=== PATIENT | female | born 1990 | race Caucasian/White ===

== ENCOUNTER 2016-10-23 18:31 | Outpatient (CLI) | payer MEDICAID ==
[2016-10-23 19:53] LABS: AMORPHOUS SEDIMENT,URINE TRACE /HPF; APPEARANCE,URINE SLIGHTLY-CLOUDY; BILIRUBIN,URINE NEGATIVE (NEGATIVE); GLUCOSE, URINE NEGATIVE (NEGATIVE); KETONES,URINE NEGATIVE (NEGATIVE); LEUKOCYTE ESTERASE,URINE TRACE (NEGATIVE); NITRITE,URINE NEGATIVE (NEGATIVE); PROTEIN,URINE NEGATIVE (NEGATIVE); URINE SPECIFIC GRAVITY 1.009; UROBILINOGEN,URINE NEGATIVE mg/dL (<2.0)
[2016-10-23 19:59] LABS: URINE BARBITURATES SCREEN NEGATIVE; URINE METHADONE SCREEN NEGATIVE; URINE OPIATES LOW NEGATIVE; URINE PHENCYCLIDINE SCREEN NEGATIVE
--- NOTE | 2016-10-23 20:00 | L&D Flow Sheet ---
LD Flowsheet Datetime Report Generated by CPN: 10/23/2016 20:00 Datetime: 10/23/2016 19:57 NBP Sys/Venessa/Mean (mmHg): 126 (QS system process) : 76 (QS system process) : 95 (QS system process) Pulse: 100 (QS system process) LaborFlag: Antepartum (QS system process) Datetime: 10/23/2016 19:40 NBP Sys/Venessa/Mean (mmHg): 127 (QS system process) : 65 (QS system process) : 88 (QS system process) Pulse: 75 (QS system process) LaborFlag: Antepartum (QS system process) Datetime: 10/23/2016 19:30 Vital Signs Stage of : Antepartum (Tricia Martinez RN) Respirations: 16 (Tricia Martinez RN) Temperature (F): 98.1 (Tricia Martinez RN) Temperature (C): 36.7 (QS system process) Uterine Activity Monitor Mode: External (Tricia Errichiello, RN) Frequency (min): irritability (Tricia Orlinichiello, RN) Quality: Mild (Tricia Errichiello, RN) Resting Tone (Palpate): Relaxed (Tricia Errichiello, RN) Assessment A Monitor Mode: External US (Tricia Martinez, RN) Monitor Interventions for FHR: Ultrasound Adjusted (Tricia Martinez, RN) FHR Baseline Rate : 150 (Tricia Errichiello, RN) FHR Baseline Changes: No Baseline Change (Tricia Errichiello, RN) Variability: Moderate 6-25 bpm (Tricia Errichiello, RN) Accelerations: 15X15 (Tricia Errichiello, RN) Decelerations: None (Tricia Errichiello, RN) Assessment B Monitor Mode: External US (Tricia Edwinello, RN) FHR Baseline Rate : 145 (Tricia Errichiello, RN) FHR Baseline Changes: No Baseline Change (Tricia Errichiello, RN) Variability: Moderate 6-25 bpm (Tricia Errichiello, RN) Accelerations: 15X15 (Tricia Martinez, RN) Decelerations: None (Tricia Martinez, RN) Pain Presence: None/Denies (Trciia Martinez, RN) Maternal Assessment Level of Consciousness: Fully Conscious (Tricia Martinez, RN) Maternal Assessment Level of Consciousness: Fully Conscious (Tricia Martinez RN) DTR's/Clonus: DTRs 2+; No Clonus (Tricia Martinez RN) DTR's/Clonus: DTRs 2+; No Clonus (Tricia Martinez, RN) Headache: Denies (Tricia Martinez RN) Headache: Denies (Tricia Martinez RN) Breath Sounds, Left: Clear and Equal (Tricia Martinez RN) Breath Sounds, Left: Clear and Equal (Tricia Martinez RN) Breath Sounds, Right: Clear and Equal (Tricia Martinez RN) Breath Sounds, Right: Clear and Equal (Tricia Martinez RN) Nausea/Vomiting: Denies (Tricia Martinez RN) Nausea/Vomiting: Denies (Tricia Martinez RN) RUQ Epigastric Pain: Denies (Tricia Martinez RN) RUQ Epigastric Pain: Denies (Tricia Martinez RN) Patient Care Patient Position/Activity: Left Tilt; Semi-Fowlers (Tricia Martinez, VIRIDIANA) Communication Communication: RN at Bedside; RN Reviewed Strip (Tricia Martinez RN) LaborFlag: Antepartum (QS system process) Datetime: 10/23/2016 19:29 Communication Comments: Bedside report given to K. Fore RN (Deepika Austin, RN) Datetime: 10/23/2016 19:27 NBP Sys/Venessa/Mean (mmHg): 131 (QS system process) : 71 (QS system process) : 94 (QS system process) Pulse: 81 (QS system process) Datetime: 10/23/2016 19:15 Uterine Activity Monitor Mode: External (Edepika Austin, RN) Frequency (min): irreg (Deepika Austin, RN) Quality: Mild (Deepika Austin, RN) Duration (sec): 40-60 (Deepika Austin, RN) Resting Tone (Palpate): Relaxed (Deepika Austin, RN) Assessment A Monitor Mode: External US (Deepika Austin, RN) FHR Baseline Rate : 155 (Deepika Austin, RN) Variability: Moderate 6-25 bpm (Deepika Austin, RN) Accelerations: 15X15 (Deepika Austin, RN) Decelerations: None (Deepika Austin, RN) Assessment B Monitor Mode: External US (Deepika Austin, RN) FHR Baseline Rate : 155 (Deepika Austin, RN) Variability: Moderate 6-25 bpm (Deepika Austin, RN) Accelerations: 15X15 (Deepika Austin, RN) Decelerations: None (Deepika Austin, RN) Datetime: 10/23/2016 19:11 NBP Sys/Venessa/Mean (mmHg): 114 (QS system process) : 63 (QS system process) : 81 (QS system process) Pulse: 72 (QS system process) Datetime: 10/23/2016 18:58 Pain Pain Scale: 4 (Deepika Norman, RN) Pain Presence: Constant (Deepika Austin, RN) Pain Type: Stabbing (Deepika Austin, RN) Pain Location: Abdomen (Deepika Austin, RN) Vaginal Exam Vaginal Bleeding: None (Deepika Austin, RN) Maternal Assessment Level of Consciousness: Fully Conscious (Deepika Austin RN) DTR's/Clonus: DTRs 2+; No Clonus (Deepika Austin, RN) Headache: Denies (Deepika Austin, RN) Breath Sounds, Left: Clear and Equal (Deepika Austin RN) Breath Sounds, Right: Clear and Equal (Deepika Austin RN) Nausea/Vomiting: Present (Deepika Austin RN) RUQ Epigastric Pain: Denies (Deepika Austin, RN) Teaching Instructional Method: Verbal; Patient Instructed; Family/Support Person Instructed; Verbalized Understanding (Deepika Austin RN) Plan of Care: Plan of Care Discussed (Deepika Austin RN) Unit Routine: [place] to Room; Call [facility]; Bed; Handwashing; Monitoring; Bathroom Privileges (Deepika Austin, RN) Datetime: 10/23/2016 18:55 NBP Sys/Venessa/Mean (mmHg): 132 (QS system process) : 73 (QS system process) : 94 (QS system process) Pulse: 78 (QS system process) Datetime: 10/23/2016 18:50 Patient Care Patient Position/Activity: Left Lateral (Deepika Austin RN) I/O Interventions: Clear Liquids Given (Deepika Austin RN)
== END 2016-10-23 20:15 | disposition home or self-care (01) ==
LOC: LC 18:31
PROVIDERS: ATTEND Specialist
PROC: 4A1HXCZ Monitoring of Products of Conception, Cardiac Rate, External Approach (ICD-10-PCS; principal; 2016-10-23)
DX: O47.03 False labor before 37 completed weeks of gestation, third trimester (principal); O30.003 Twin pregnancy, unspecified number of placenta and unspecified number of amniotic sacs, third trimester; Z3A.31 31 weeks gestation of pregnancy
CPT/HCPCS: 80307; 81001

== ENCOUNTER 2016-11-03 07:47 | Outpatient (CLI) | payer MEDICAID ==
--- NOTE | 2016-11-03 08:08 | Non Stress Test Report ---
Non Stress Test Datetime Report Generated by CPN: 11/03/2016 08:07 DEMOGRAPHIC Test Number: 1 EGA NST: 31.1 INDICATION Indication for Study: Ordered by Provider MONITORING Monitor Explained: Monitor Explained; Test Explained; Patient Verbalized Understanding Time on Monitor: 10/23/2016 18:52 Time off Monitor: 10/23/2016 19:58 NST Duration: 66 NST INTERVENTIONS NST Interventions: PO Hydration Physician Notified NST: Dr Neilsen BABY A: [id number] BABY A Movement : Present Contraction Frequency : irritability FHR Baseline : 150 Accelerations : 15X15 Decelerations : None Variability : Moderate 6-25bpm NST Review: Meets Criteria for Reactive NST NST Review and Verified By : VIRIDIANA Villalobos Results: Reactive BABY B Movement: Present FHR Baseline: 155 Accelerations: 15X15 Decelerations: None Variability: Moderate 6-25bpm NST Review: Meets Criteria for Reactive NST NST Results: Reactive NST REPORT Report Trigger: Send Report
[2016-11-03] MEDS ORDERED: ONDANSETRON HCL INJ/PF 4 MG/2 ML SDV IV PRN (08:09)
[2016-11-03] MEDS ORDERED: ONDANSETRON HCL INJ/PF 4 MG/2 ML SDV ONE (08:26)
[2016-11-03] MEDS: RINGERS SOLUTION,LACTATED 1,000 ML IV PRN ×2 (08:37→09:37)
[2016-11-03 08:45] LABS: AMORPHOUS SEDIMENT,URINE TRACE /HPF; APPEARANCE,URINE CLOUDY; BILIRUBIN,URINE NEGATIVE (NEGATIVE); GLUCOSE, URINE NEGATIVE (NEGATIVE); KETONES,URINE NEGATIVE (NEGATIVE); LEUKOCYTE ESTERASE,URINE NEGATIVE (NEGATIVE); NITRITE,URINE NEGATIVE (NEGATIVE); PROTEIN,URINE NEGATIVE (NEGATIVE); UROBILINOGEN,URINE NEGATIVE mg/dL (<2.0)
[2016-11-03 08:51] LABS: URINE BARBITURATES SCREEN NEGATIVE; URINE METHADONE SCREEN NEGATIVE; URINE OPIATES LOW NEGATIVE; URINE PHENCYCLIDINE SCREEN NEGATIVE
--- NOTE | 2016-11-03 09:46 | Non Stress Test Report ---
Non Stress Test Datetime Report Generated by CPN: 11/03/2016 09:45 DEMOGRAPHIC EGA NST: 32.5 INDICATION Indication for Study: Multiple Gestation; Ordered by Provider Indication for Study (NST) Other: N/V/D MONITORING Monitor Explained: Monitor Explained; Test Explained; Patient Verbalized Understanding Time on Monitor: 11/03/2016 08:13 Time off Monitor: 11/03/2016 08:53 NST Duration: 40 NST INTERVENTIONS NST Interventions: IV Fluids; Reposition Patient Physician Notified NST: Dr Neilsen BABY A Movement : Present Contraction Frequency : Occ FHR Baseline : 145 Accelerations : 15X15 Decelerations : None Variability : Moderate 6-25bpm NST Review: Meets Criteria for Reactive NST NST Review and Verified By : Yoshi Tapia RN NST Results: Reactive BABY B Movement: Present FHR Baseline: 140 Accelerations: 15X15 Decelerations: None Variability: Moderate 6-25bpm NST Review: Meets Criteria for Reactive NST NST Reviewed And Verified By: Yoshi Tapia RN NST Results: Reactive NST REPORT Report Trigger: Send Report
--- NOTE | 2016-11-03 10:01 | L&D Flow Sheet ---
LD Flowsheet Datetime Report Generated by CPN: 11/03/2016 10:00 Datetime: 11/03/2016 09:46 Vital Signs NBP Sys/Venessa/Mean (mmHg): 103 (QS system process) : 58 (QS system process) : 75 (QS system process) Pulse: 68 (QS system process) LaborFlag: Antepartum (QS system process) Datetime: 11/03/2016 09:37 Patient Care IV/Blood Work: IV Infusing per Order; New IV Bag Hung; IV Bag Number @ 2 (Deepika Jose, RN) Datetime: 11/03/2016 09:34 Uterine Activity Monitor Mode: External; Palpation (Deepika Jose, RN) Frequency (min): Occ (Deepika Jose, RN) Quality: Mild (Deepika Jose, RN) Duration (sec): 30-40 (Deepika Jose, RN) Resting Tone (Palpate): Relaxed (Deepika Jose, RN) Assessment A Monitor Mode: External US (Deepika Jose, RN) FHR Baseline Rate : 140 (Deepika Jose, RN) Variability: Moderate 6-25 bpm (Deepika Jose, RN) Accelerations: 15X15 (Deepika Jose, RN) Decelerations: None (Deepika Jose, RN) Comments: Monitor removed per Dr Freeman (Deepika Jose, RN) Assessment B Monitor Mode: External US (Deepika Jose, RN) FHR Baseline Rate : 135 (Deepika Jose, RN) Variability: Moderate 6-25 bpm (Deepika Jose, RN) Accelerations: 15X15 (Deepika Garcia, RN) Decelerations: None (Deepika Garcia, RN) Comments: Monitors removed per Dr Freeman (Deepika Garcia, RN) Datetime: 11/03/2016 09:26 Communication Communication Comments: Pete called w/ FHR A_B, UC pattern, UA, VS, IV hydration. Plan of care discussed. Provider to eval patient. Orders received to d/c FHR monitor, [place] only. (Deepika Garcia, VIRIDIANA) Datetime: 11/03/2016 09:16 Vital Signs NBP Sys/Venessa/Mean (mmHg): 127 (QS system process) : 81 (QS system process) : 100 (QS system process) Pulse: 76 (QS system process) Respirations: 16 (Deepika Jose, RN) LaborFlag: Antepartum (QS system process) Datetime: 11/03/2016 09:15 Uterine Activity Monitor Mode: External; Palpation (Deepika Jose, RN) Frequency (min): Occ (Deepika Jose, RN) Quality: Mild (Deepika Jose, RN) Duration (sec): 30-40 (Deepika Jose, RN) Resting Tone (Palpate): Relaxed (Deepika Jose, RN) Assessment A Monitor Mode: External US (Deepika Jose, RN) FHR Baseline Rate : 140 (Deepika Jsoe, RN) Variability: Moderate 6-25 bpm (Deepika Jose, RN) Accelerations: 15X15 (Deepika Jose, RN) Decelerations: None (Deepika Jose, RN) Assessment B Monitor Mode: External US (Deepika Jose, RN) FHR Baseline Rate : 130 (Deepika Jose, RN) Variability: Moderate 6-25 bpm (Deepika Jose, RN) Accelerations: 15X15 (Deepika Jose, RN) Decelerations: None (Deepika Jose, RN) Datetime: 11/03/2016 08:46 Vital Signs NBP Sys/Venessa/Mean (mmHg): 131 (QS system process) : 82 (QS system process) : 98 (QS system process) Pulse: 75 (QS system process) LaborFlag: Antepartum (QS system process) Datetime: 11/03/2016 08:45 Uterine Activity Monitor Mode: External; Palpation (Deepika Jose, RN) Frequency (min): Irreg (Deepika Jose, RN) Quality: Mild (Deepika Jose, RN) Duration (sec): 30-40 (Deepika Jose, RN) Resting Tone (Palpate): Relaxed (Deepika Jose, RN) Assessment A Monitor Mode: External US (Deepika Jose, RN) FHR Baseline Rate : 145 (Deepika Jose, RN) Variability: Moderate 6-25 bpm (Deepika Jose, RN) Accelerations: 15X15 (Deepika Jose, RN) Decelerations: None (Deepika Jose, RN) FHR Baseline Rate : 140 (Deepika Jose, RN) Variability: Moderate 6-25 bpm (Deepika Jose, RN) Accelerations: 15X15 (Deepika Jose, RN) Decelerations: None (Deepika Jose, RN) Datetime: 11/03/2016 08:37 Medications Antiemetics/Antacids: Zofran IV (mg) @ 8mg IV (Deepika Jose, RN) Patient Care IV/Blood Work: IV Infusing per Order; New IV Bag Hung; IV Bag Number @ 1 (Deepika Jose, RN) Datetime: 11/03/2016 08:20 Frequency (min): Irreg cramping (Deepika Jose, RN) Pain Pain Scale: 1 (Deepika Jose, RN) Pain Presence: Intermittent (Deepika Jose, RN) Pain Type: Cramping (Deepika Jose, RN) Pain Location: Abdomen (Deepika Jose, RN) Pain Goal: 2 (Deepika Jose, RN) Pain Relief Measures: Comfort Measures (Deepika Jose, RN) Pain Coping: Talking Through Contractions (Deepika Jose, RN) Vaginal Exam Vaginal Bleeding: None (Deepika Jose, RN) Maternal Assessment Level of Consciousness: Fully Conscious (Deepika Garcia RN) DTR's/Clonus: DTRs 1+; No Clonus (Deepika Garcia RN) Headache: Denies (Deepika Garcia, RN) Breath Sounds, Left: Clear and Equal (Deepika Garcia, RN) Breath Sounds, Right: Clear and Equal (Deepika Garcia, RN) Nausea/Vomiting: Present (Deepika Garcia RN) RUQ Epigastric Pain: Denies (Deepika Garcia RN) Teaching Instructional Method: Verbal; Patient Instructed; Family/Support Person Instructed; Verbalized Understanding (Deepika Garcia RN) Plan of Care: Plan of Care Discussed (Deepika Garcia RN) Unit Routine: [place] to Room; Call Thurman; Bed; Unit Personnel; Handwashing; Monitoring (Deepika Garcia RN) LaborFlag: Antepartum (QS system process) Datetime: 11/03/2016 08:16 Vital Signs NBP Sys/Venessa/Mean (mmHg): 125 (QS system process) : 79 (QS system process) : 96 (QS system process) Pulse: 90 (QS system process) LaborFlag: Antepartum (QS system process) Datetime: 11/03/2016 08:14 Communication Communication Comments: Dr Freeman at bedside, Plan of care and EFM reviewed. Orders received for LR IVF bolus and Zofran for n/v. (Deepika Garcia RN)
== END 2016-11-03 10:40 | disposition home or self-care (01) ==
LOC: LC 07:47
PROVIDERS: ATTEND Specialist
PROC: 4A1HXCZ Monitoring of Products of Conception, Cardiac Rate, External Approach (ICD-10-PCS; principal; 2016-11-03)
DX: O99.613 Diseases of the digestive system complicating pregnancy, third trimester (principal); K52.9 Noninfective gastroenteritis and colitis, unspecified; O30.003 Twin pregnancy, unspecified number of placenta and unspecified number of amniotic sacs, third trimester; Z3A.32 32 weeks gestation of pregnancy
CPT/HCPCS: 59025; 81001; 80307; J2405